=== PATIENT | male | born 1980 | race Caucasian/White ===

== ENCOUNTER 2020-11-12 12:33 | Emergency (ER) | payer MEDICAID, OTHER ==
[~2020-11-12] VITALS: Ht 188 cm; Wt 102.0 kg
--- NOTE | 2020-11-12 13:20 | NUR ---
SAME TRIAGE NOTE. PT REPORTS WORSENING REDNESS, SWELLING, PAIN TO R EYE OVER PAST 2 DAYS AND NOW REDNESS TO L EYE ONSET TODAY. AT BS.
[2020-11-12] MEDS ORDERED: CEPHALEXIN 500 MG CAPSULE PO ONE (14:30)
[2020-11-12] MEDS ORDERED: CEPHALEXIN 500 MG CAPSULE ONE (14:32)
--- NOTE | 2020-11-12 14:44 | NUR ---
PT MEDICATED PER ORDERS. UA SENT.
[2020-11-12 14:54] LABS: MICROSCOPIC NOT IND
[2020-11-12] MEDS ORDERED: HYDROcodone/APAP 5/325 TABLET PO ONE (15:30)
[2020-11-12] MEDS ORDERED: HYDROcodone/APAP 5/325 TABLET ONE (15:31)
[2020-11-12 15:41] VITALS: BP 115/83
--- NOTE | 2020-11-12 15:46 | NUR ---
PT MEDICATED FOR PAIN. DECLINES WAITING IN ER FOLLOWING MED ADMINISTRATION. D/C INSTRUCTIONS, MEDS & F/U APPT RV'WD WITH PT, HE VERBALIZES UNDERSTANDING. RX GIVEN X2. PT AMBULATED OUT OF ED WITHOUT DIFFICULTY, STATES HIS WILL PICK HIM UP.
== END 2020-11-12 15:47 | disposition home or self-care (01) ==
LOC: ED 13:16
DX: H10.023 Other mucopurulent conjunctivitis, bilateral (principal); R30.0 Dysuria
CPT/HCPCS: 81003; 99283